=== PATIENT | male | born 1965 | race Caucasian/White ===

== ENCOUNTER 2020-08-08 08:20 | Outpatient (CLI) | payer BC, SELFPAY ==
--- NOTE | ~2020-08-08 | MR_ITS ---
EXAMINATION: MR lumbar spine wo con DATE: 08/08/2020 09:46 INDICATION: Low back pain TECHNIQUE: Magnetic resonance imaging (MRI) of the lumbar spine was performed without intravenous con trast. Sequences included sagittal T2-weighted FSE, sagittal T2-weighted FS FSE, sagittal T1-weighted FSE, and axial T2-weighted FSE. COMPARISON: 05/01/2015 FINDINGS: Partially visualized moderate thoracolumbar dextroscoliosis seen on the customer liaison images. 4 mm retrolisth esis L5 on S1. Vertebral body heights are normal. Minimal change in moderate disc height loss at L4-L 5 with fibrovascular degenerative endplate changes. Mild disc height loss at L3-L4 and L5-S1. There a re annular fissures at each of these levels. The conus medullaris terminates at L1. There is normal s ignal in the caudal spinal cord. Paravertebral soft tissues are unremarkable. The following disc leve ls are specifically discussed: T12-L1: Disc is mildly bulging. Mild bilateral There is no facet joint osteoarthritis. There is no ne ural foraminal stenosis. There is minimal central canal stenosis. L1-L2: The disc does not extend beyond the endplate margin. There is mild bilateral facet joint osteo arthritis. There is no neural foraminal stenosis. There is no central canal stenosis. L2-L3: The disc does not extend beyond the endplate margin. There is mild to moderate bilateral facet joint osteoarthritis. There is no neural foraminal stenosis. There is no central canal stenosis. L3-L4: Disc is mildly bulging with new superimposed annular fissure and small central disc extrusion with disc material extending a couple millimeters cephalad and caudal to the level of the endplates. There is mild to moderate bilateral facet joint osteoarthritis. There is no neural foraminal stenosis . There is mild central canal stenosis. L4-L5: Moderate diffuse disc bulge. There is moderate right and mild to moderate left facet joint ost eoarthritis. There is left and mild to moderate right neural foraminal stenosis. There is mild centra l canal stenosis. L5-S1: Moderate diffuse disc bulge. There is moderate right and mild to moderate left facet joint ost eoarthritis. There is moderate bilateral, right greater than left, neural foraminal stenosis. There i s mild central canal stenosis. IMPRESSION: 1. Moderate thoracolumbar dextroscoliosis. 2. No significant change in moderate lower lumbar predominant spondylosis. Reviewed, dictated and finalized at location A. PRESS OPERATOR
== END 2020-08-08 08:21 | disposition home or self-care (01) ==
PROVIDERS: PCP Internal Medicine; Visit Provider Nurse Practitioner
DX: M54.5 Low back pain (principal); M41.9 Scoliosis, unspecified; M41.85 Other forms of scoliosis, thoracolumbar region; M47.816 Spondylosis without myelopathy or radiculopathy, lumbar region
CPT/HCPCS: 72148